=== PATIENT | female | born 1950 | race Caucasian/White ===

== ENCOUNTER → 2023-07-22 10:21 | Outpatient (REF) | payer MEDICARE, OTHER, SELFPAY ==
[2023-07-22 13:36] LABS: TSH Reflex To Free T4 0.09 uIU/ml (0.47-4.68)
[2023-07-22 14:04] LABS: Free T4 1.38 ng/dl (0.78-2.19)
[2023-07-22 14:10] LABS: Glycohemoglobin (HgbA1c) 6.4 % (4.0-5.6)
== END ==
LOC: HWLAB 10:21
PROVIDERS: ATTENDING PHYSICIAN Internal Medicine
DX: E03.9 Hypothyroidism, unspecified (principal); R73.03 Prediabetes; I10 Essential (primary) hypertension; E78.49 Other hyperlipidemia
CPT/HCPCS: 36415; 83036; 84439; 84443

== ENCOUNTER → 2023-09-17 09:04 | Outpatient (REF) | payer MEDICARE, OTHER, SELFPAY ==
[2023-09-17 11:42] LABS: HDL Cholesterol 61 mg/dl; LDL Cholesterol, Calculated 98 mg/dl; Total Cholesterol 213 mg/dl (50-199); Triglyceride 274 mg/dl (10-149); Very Low Density Lipoprotein 54 mg/dl (0-30)
[2023-09-17 12:11] LABS: TSH Reflex To Free T4 2.42 uIU/ml (0.47-4.68)
== END ==
LOC: HWLAB 09:04
PROVIDERS: ATTENDING PHYSICIAN Internal Medicine
DX: E03.9 Hypothyroidism, unspecified (principal); M81.0 Age-related osteoporosis without current pathological fracture; I10 Essential (primary) hypertension; Z12.11 Encounter for screening for malignant neoplasm of colon; E11.9 Type 2 diabetes mellitus without complications; K76.0 Fatty (change of) liver, not elsewhere classified; E78.2 Mixed hyperlipidemia
CPT/HCPCS: 36415; 80061; 84443

== ENCOUNTER → 2023-12-30 08:23 | Outpatient (REF) | payer MEDICARE, OTHER, SELFPAY ==
[2023-12-30 13:05] LABS: ALT (SGPT) 46 U/L (0-35); AST (SGOT) 48 U/L (14-36); Albumin 4.7 g/dl (3.5-5.0); Alkaline Phosphatase 87 U/L (38-126); Blood Urea Nitrogen 22 mg/dl (7-17); Calcium 9.7 mg/dl (8.4-10.2); Carbon Dioxide 25 mmol/L (22-30); Chloride 102 mmol/L (98-107); Glucose 121 mg/dl (70-99); Potassium 4.3 mmol/L (3.5-5.1); Sodium 141 mmol/L (135-145); Total Bilirubin 0.7 mg/dl (0.2-1.3); Total Protein 7.2 g/dl (6.3-8.2); eGFR > 60.00
[2023-12-30 13:33] LABS: Glycohemoglobin (HgbA1c) 6.2 % (4.0-5.6)
[2023-12-30 13:45] LABS: TSH Reflex To Free T4 3.46 uIU/ml (0.47-4.68)
== END ==
LOC: HWLAB 08:23
PROVIDERS: ATTENDING PHYSICIAN Internal Medicine
DX: E03.9 Hypothyroidism, unspecified (principal); R73.03 Prediabetes; I10 Essential (primary) hypertension
CPT/HCPCS: 36415; 80053; 83036; 84443

== ENCOUNTER → 2024-09-14 09:15 | Outpatient (REF) | payer MEDICARE, OTHER, SELFPAY ==
[2024-09-14 11:35] LABS: % Basophils 0.7 % (0-2); % Eosinophils 2.5 % (0-6); % Immature Granulocytes 0.7 % (0-0.5); % Lymphocytes 19.1 % (20.5-51.1); Absolute Basophils 0.1 10^3/uL (0-0.2); Absolute Eosinophils 0.2 10^3/uL (0-0.7); Absolute Immature Granulocytes 0.1 10^3/uL (0-0.05); Absolute Lymphocytes 1.4 10^3/uL (1.2-3.4); Absolute Monocytes 0.6 10^3/uL (0.1-0.6); Hematocrit 43.4 % (37.0-47.0); Hemoglobin 14.5 g/dL (12.0-16.0); Mean Corp Hgb Conc. 33.4 g/dL (33.0-37.0); Mean Corpuscular Hgb 29.8 pg (27.0-31.0); Mean Corpuscular Volume 89.3 fL (81.0-99.0); Mean Platelet Volume 10.2 fL (7.4-10.4); Nucleated Red Blood Cells % 0 %; Platelet Count 252 10^3/uL (130-400); Red Blood Cell Count 4.86 10^6/uL (4.20-5.40); Red Cell Dist. Width 14.3 % (11.5-14.5); White Blood Cell Count 7.2 10^3/uL (4.8-10.8)
[2024-09-14 12:01] LABS: ALT (SGPT) 35 U/L (0-35); AST (SGOT) 30 U/L (14-36); Albumin 4.7 g/dl (3.5-5.0); Alkaline Phosphatase 92 U/L (38-126); Blood Urea Nitrogen 16 mg/dl (7-17); Calcium 9.9 mg/dl (8.4-10.2); Carbon Dioxide 28 mmol/L (22-30); Chloride 106 mmol/L (98-107); Glucose 112 mg/dl (70-99); HDL Cholesterol 66 mg/dl; LDL Cholesterol, Calculated 96 mg/dl; Potassium 3.8 mmol/L (3.5-5.1); Sodium 142 mmol/L (135-145); Total Bilirubin 0.6 mg/dl (0.2-1.3); Total Cholesterol 229 mg/dl (50-199); Total Protein 7.5 g/dl (6.3-8.2); Triglyceride 335 mg/dl (10-149); Very Low Density Lipoprotein 67 mg/dl (0-30); eGFR > 60.00
[2024-09-14 13:00] LABS: Free T4 1.15 ng/dl (0.78-2.19)
[2024-09-14 14:16] LABS: Glycohemoglobin (HgbA1c) 6.3 % (4.0-5.6)
== END ==
LOC: HWLAB 09:15
PROVIDERS: ATTENDING PHYSICIAN Internal Medicine
DX: E03.9 Hypothyroidism, unspecified (principal); M81.0 Age-related osteoporosis without current pathological fracture; I10 Essential (primary) hypertension; Z12.11 Encounter for screening for malignant neoplasm of colon; E11.9 Type 2 diabetes mellitus without complications; K76.0 Fatty (change of) liver, not elsewhere classified; E78.2 Mixed hyperlipidemia; Z00.00 Encounter for general adult medical examination without abnormal findings; G62.9 Polyneuropathy, unspecified; Z13.31 Encounter for screening for depression
CPT/HCPCS: 36415; 80053; 80061; 83036; 84439; 84443; 85025

== ENCOUNTER → 2024-11-30 08:54 | Outpatient (REF) | payer MEDICARE, OTHER, SELFPAY | LOC: HWLAB 08:54 | PROVIDERS: ATTENDING PHYSICIAN Internal Medicine | DX: E03.9 Hypothyroidism, unspecified (principal) | CPT/HCPCS: 36415; 84443 ==

== ENCOUNTER 2025-03-28 20:54 | Observation (INO) | payer MEDICARE, OTHER, SELFPAY ==
[2025-03-28 15:13] VITALS: BMI 24.1
[2025-03-28 15:16] VITALS: BP 168/76
[2025-03-28 15:18] VITALS: BP 168/76
[2025-03-28 15:21] LABS: Glucose - Point of Care 126 mg/dl (70-99)
--- NOTE | 2025-03-28 16:15 | ED.GENMED ---
History of Present Illness
<Stevie Chester PA-C - Last Filed: 03/28/25 23:13>
General
Chief Complaint: Malaise
Time Seen by Provider: 03/28/25 15:46
History of Present Illness
History of Present Illness:
74-year-old female with history of hypertension and hyperlipidemia presents to the emergency department for evaluation of confusion and fatigue that has been progressing over the past 2 days. According to patient's daughter she slept most of the
day today but has been having vomiting and diarrhea over the weekend. Daughter states 'whenever she gets sick she gets like this'. She is somnolent and having a hard time speaking. Patient denies any pain at this time. No recent antibiotics, no
ill contacts
Past History
<Stevie Chester PA-C - Last Filed: 03/28/25 23:13>
Past History
ED Past Medical History: HTN, Hypercholesterolemia and Hypothyroidism
ED Past Surgical History: Orthopedic (Lumbar laminectomy) and Other (Cataract)
Social History
Tobacco: Former smoker
Alcohol: None
Personal:
Living: with family
Employment: Employed
Family History
Family History: Negative Diabetes, Hypertension or CAD
Review of Systems
<Stevie Chester PA-C - Last Filed: 03/28/25 23:13>
Review of Systems
Allergies reviewed?: Yes
All Other Systems: ROS reviewed and negative except as documented in HPI and ROS
Phy Exam
<Stevie Chester PA-C - Last Filed: 03/28/25 23:13>
Physical Exam
Physical Exam:
GEN: Somnolent but arouses to voice, confused
HEENT: Oral mucosa moist, no scleral icterus
Cardiac: Regular rate and rhythm
Lung: No respiratory distress, no tachypnea
MSK: No gross deformity or injuries
Skin: Good color, no pallor or jaundice, no rashes
Neuro: Confused and has difficulty with simple questions, asked repetitive motions, moves all extremities freely, no focal deficits
Psych: Calm, cooperative
Sepsis
<Stevie Chester PA-C - Last Filed: 03/28/25 23:13>
Sepsis Screening
Sepsis Assessment: Sepsis Ruled Out
Sepsis Screen
Sepsis Screen: Sepsis Ruled Out
Date: 03/28/25
Time: 23:13
Course
<Stevie Chester PA-C - Last Filed: 03/28/25 23:13>
Orders/Labs/Results
Orders:
Orders
03/28/25 Dinner
BRAT
At Your Request: Full Participation
03/28/25 15:25
Electrocardiogram (*1) Urgent
Reason for Study: Fatigue / Weakness
03/28/25 15:26
EKG- Treatment ONCE
03/28/25 16:15
0.9% Sodium Chloride 1000 ml [Nss] 1,000 ml IV BOLUS
03/28/25 16:28
Basic Metabolic Panel Urgent
Complete Blood Count/With Diff Urgent
Lactic Acid Q4H
Comment: CANCEL 2nd LACTIC ACID IF 1st LACTIC ACID IS LESS THAN 2
Urinalysis Reflex To Culture Urgent
Date Specimen was Collected: 03/28/25
Time Specimen was Collected: 15:26
Urine Microscopic Reflex Cult Urgent
Urine Culture Urgent
MARY JO Source: U
Specimen Description:
Date Specimen was Collected: 03/28/25
Time Specimen was Collected: 15:26
03/28/25 17:39
0.9% Sodium Chloride 1000 ml [Nss] 1,000 ml IV BOLUS
03/28/25 17:40
CT Head W/o Iv Contrast Urgent
Comment:
Reason For Exam: confusion
03/28/25 19:18
Ondansetron Injectable [Zofran] 4 mg IV NOW STA
03/28/25 19:38
COVID-19 Antigen Urgent
Source: Nasal Swab
Influenza A+B Rapid Molecular Urgent
MARY JO Source: Nasal Swab
Specimen Description:
03/28/25 19:44
CR Chest Portable - 1 View Urgent
Comment:
Reason For Exam: confusion, malaise, borderline hypoxia
Reason Study Needs to be Portable: Unable to Transport
03/28/25 20:09
Admit/Transfer Patient As Directed
Co-Sign Provider:
Level of Care: Observation services
Assign to:: Medical/Surgical
Physician / Group: carmelo
Diagnosis: gastroenteritis
PRN Pain Medication Management As Directed
May give lesser potent ordered pain med per pt: Yes
preference::
Protocol:: Medication orders for pain may be administered in a
manner that supports deferring to patient preference
when the pt is:
- Requesting an ordered lesser potent pain medication.
Least to most potent pain medications are defined
as: acetaminophen < NSAID < tramadol < opioids
(morphine, oxycodone, hydromorphone).
- Requesting a lesser dose of the same medication IF
ORDERED.
- Requesting a less intrusive route of administration
if both routes are prescribed by the provider (PO <
IV).
03/28/25 20:10
Code Status As Directed
Resuscitation Status: Full Code
03/28/25 20:22
Lactic Acid Urgent
03/28/25 21:30
0.9% Sodium Chloride 1000 ml [Nss] 1,000 ml IV 80 mls/hr
Acetaminophen [Tylenol] 650 mg PO Q4HPRN PRN
Dextrose 50%-Water [Dextrose 50% Syringe] 12.5 grams IV [id number] PRN
Glucagon [GlucaGen] 1 mg IM PRN PRN
Ondansetron Injectable [Zofran] 4 mg IV Q6HPRN PRN
03/28/25 21:30
Activity As Directed
Activity Level: As Tolerated
Bedside Glucose Monitoring As Directed
Frequency: AC&HS
Additional Instructions:: Change to q6h if pt on TPN, tube feeding or not eating
Vital Signs As Directed
Frequency: Per unit guidelines
DX Deep Vein Thrombosis Video Routine
03/29/25 06:00
Complete Blood Count/With Diff IN AM
Comprehensive Metabolic Panel IN AM
Glycohemoglobin (HgbA1c) IN AM
03/29/25 07:30
Insulin Aspart Corrective Low [Novolog Flexpen-Low Resistance] See Protocol SC AC
03/29/25 08:00
Heparin 5,000 units SC Q12
Abnormal Lab Results
03/28/25 03/28/25
15:20 16:28
Abs Immat Gran (auto) 0.1 H 10^3/uL
(0-0.05)
Absolute Neuts (auto) 8.7 H 10^3/uL
(1.4-6.5)
Absolute Lymphs (auto) 0.7 L 10^3/uL
(1.2-3.4)
Absolute Monos (auto) 0.8 H 10^3/uL
(0.1-0.6)
Immature Gran % 0.7 H %
(0-0.5)
Neutrophils % 84.4 H %
(42.2-75.2)
Lymphocytes % 6.6 L %
(20.5-51.1)
BUN 29 H mg/dl
(7-17)
Glucose 134 H mg/dl
(70-99)
Urine Bacteria (Reflex) Moderate A
(Negative)
Urine Albumin (Reflex) 2+ A
(Neg - Trace)
POC Glucose 126 H mg/dl
(70-99)
03/28/25 16:28
03/28/25 16:28
Vital Signs
Initial and Last Documented VS:
Initial Vital Signs
BP
168/76
03/28/25 15:16
Last Documented Vital Signs
Temp Pulse Resp BP Pulse Ox
97.7 F 75 18 157/80 96
03/28/25 22:09 03/28/25 22:09 03/28/25 22:09 03/28/25 22:09 03/28/25 22:09
<Sinan Marroquin MD - Last Filed: 03/28/25 19:21>
Orders/Labs/Results
Orders:
Orders
03/28/25 Dinner
BRAT
At Your Request: Full Participation
03/28/25 15:25
Electrocardiogram (*1) Urgent
Reason for Study: Fatigue / Weakness
03/28/25 15:26
EKG- Treatment ONCE
03/28/25 16:15
0.9% Sodium Chloride 1000 ml [Nss] 1,000 ml IV BOLUS
03/28/25 16:28
Basic Metabolic Panel Urgent
Complete Blood Count/With Diff Urgent
Lactic Acid Q4H
Comment: CANCEL 2nd LACTIC ACID IF 1st LACTIC ACID IS LESS THAN 2
Urinalysis Reflex To Culture Urgent
Date Specimen was Collected: 03/28/25
Time Specimen was Collected: 15:26
Urine Microscopic Reflex Cult Urgent
Urine Culture Urgent
MARY JO Source: U
Specimen Description:
Date Specimen was Collected: 03/28/25
Time Specimen was Collected: 15:26
03/28/25 17:39
0.9% Sodium Chloride 1000 ml [Nss] 1,000 ml IV BOLUS
03/28/25 17:40
CT Head W/o Iv Contrast Urgent
Comment:
Reason For Exam: confusion
03/28/25 19:18
Ondansetron Injectable [Zofran] 4 mg IV NOW STA
03/28/25 19:38
COVID-19 Antigen Urgent
Source: Nasal Swab
Influenza A+B Rapid Molecular Urgent
MARY JO Source: Nasal Swab
Specimen Description:
03/28/25 19:44
CR Chest Portable - 1 View Urgent
Comment:
Reason For Exam: confusion, malaise, borderline hypoxia
Reason Study Needs to be Portable: Unable to Transport
03/28/25 20:09
Admit/Transfer Patient As Directed
Co-Sign Provider:
Level of Care: Observation services
Assign to:: Medical/Surgical
Physician / Group: carmelo
Diagnosis: gastroenteritis
PRN Pain Medication Management As Directed
May give lesser potent ordered pain med per pt: Yes
preference::
Protocol:: Medication orders for pain may be administered in a
manner that supports deferring to patient preference
when the pt is:
- Requesting an ordered lesser potent pain medication.
Least to most potent pain medications are defined
as: acetaminophen < NSAID < tramadol < opioids
(morphine, oxycodone, hydromorphone).
- Requesting a lesser dose of the same medication IF
ORDERED.
- Requesting a less intrusive route of administration
if both routes are prescribed by the provider (PO <
IV).
03/28/25 20:10
Code Status As Directed
Resuscitation Status: Full Code
03/28/25 20:22
Lactic Acid Urgent
03/28/25 21:30
0.9% Sodium Chloride 1000 ml [Nss] 1,000 ml IV 80 mls/hr
Acetaminophen [Tylenol] 650 mg PO Q4HPRN PRN
Dextrose 50%-Water [Dextrose 50% Syringe] 12.5 grams IV [id number] PRN
Glucagon [GlucaGen] 1 mg IM PRN PRN
Ondansetron Injectable [Zofran] 4 mg IV Q6HPRN PRN
03/28/25 21:30
Activity As Directed
Activity Level: As Tolerated
Bedside Glucose Monitoring As Directed
Frequency: AC&HS
Additional Instructions:: Change to q6h if pt on TPN, tube feeding or not eating
Vital Signs As Directed
Frequency: Per unit guidelines
DX Deep Vein Thrombosis Video Routine
03/29/25 06:00
Complete Blood Count/With Diff IN AM
Comprehensive Metabolic Panel IN AM
Glycohemoglobin (HgbA1c) IN AM
03/29/25 07:30
Insulin Aspart Corrective Low [Novolog Flexpen-Low Resistance] See Protocol SC AC
03/29/25 08:00
Heparin 5,000 units SC Q12
Abnormal Lab Results
03/28/25 03/28/25
15:20 16:28
Abs Immat Gran (auto) 0.1 H 10^3/uL
(0-0.05)
Absolute Neuts (auto) 8.7 H 10^3/uL
(1.4-6.5)
Absolute Lymphs (auto) 0.7 L 10^3/uL
(1.2-3.4)
Absolute Monos (auto) 0.8 H 10^3/uL
(0.1-0.6)
Immature Gran % 0.7 H %
(0-0.5)
Neutrophils % 84.4 H %
(42.2-75.2)
Lymphocytes % 6.6 L %
(20.5-51.1)
BUN 29 H mg/dl
(7-17)
Glucose 134 H mg/dl
(70-99)
Urine Bacteria (Reflex) Moderate A
(Negative)
Urine Albumin (Reflex) 2+ A
(Neg - Trace)
POC Glucose 126 H mg/dl
(70-99)
03/28/25 16:28
03/28/25 16:28
Vital Signs
Initial and Last Documented VS:
Initial Vital Signs
BP
168/76
03/28/25 15:16
Last Documented Vital Signs
Temp Pulse Resp BP Pulse Ox
97.7 F 75 18 157/80 96
03/28/25 22:09 03/28/25 22:09 03/28/25 22:09 03/28/25 22:09 03/28/25 22:09
<Stevie Chester PA-C - Last Filed: 03/28/25 23:13>
MDM/Problems Addressed
MDM/Problems Addressed:
74-year-old female with acute metabolic encephalopathy likely secondary to vomiting and diarrhea. She has no focal deficits and CT of the head is reassuring. Doubt CVA. Will admit due to severe weakness and confusion
<Stevie Chester PA-C - Last Filed: 03/28/25 23:13>
*Pulse Oximetry
SaO2: 92
Oxygen Mode of Delivery: Room air
Patient hypoxic: no
*Critical Care Note
Total Time (30-74mins, 75-104mins- exclusive of procedures): Not Applicable
ED Attending Note
<Stevie Chester PA-C - Last Filed: 03/28/25 23:13>
-
Portions of this chart may have been created with voice recognition software.� Occasional wrong word or��sound alike� substitutions may have occurred due to the inherent limitations of voice recognition software.
<Sinan Marroquin MD - Last Filed: 03/28/25 19:21>
ED Attending Note
Patient seen and examined by attending physician: Yes
ED Attending Note:
I have seen and evaluated the patient with a [id number] encounter. I have spoken to the advance practicer provider and involved in the medical history, the physical exam, medical decision making.
Evaluation and management service: agree unless noted differently below.
Results interpretation: agree unless noted differently below.
Focused HPI: 74-year-old female with a past medical history of hypertension, hyperlipidemia who presents to the ER for evaluation of weakness and confusion. Patient is somewhat confused she says it has been going on for the past 3 days since
Friday. She says that she has been feeling very weak, nausea and vomiting. According to daughter as been more lethargic and confused and this typically happens when she is sick. Patient denies having headache, congestion, sore throat. She says
she has a chronic cough but does not feel short of breath or having chest pain. Denies having abdominal pain despite her nausea/vomiting. Has not had diarrhea. Subjective fever but no fever here.
Physical exam: Awake and alert. She is able to tell me her name, knows she is in the hospital and was able to give me the year but was a bit confused about the month of the day of the week. Cranial nerves are grossly intact and she is moving all
extremities�no focal neurologic deficits. Lungs sound clear bilaterally. Abdomen nontender.
Medical Decision Makin-year-old female presents with confusion and lethargy, nausea and vomiting. Subjective fever. Vitals and exam are as above. CBC here showed predominant neutrophils but no leukocytosis. Chemistry no clinically
significant abnormalities. Urinalysis moderate bacteria but no pyuria to suggest infection especially the absence of urinary symptoms. CT head reviewed by me no acute abnormalities although we are awaiting final report. Overall suspect likely
gastroenteritis and dehydration�Will provide fluids, admit for continued care.
Discharge Plan
Departure
Patient Disposition: Admit
Date of Disposition: 03/28/25
Time of Disposition: 19:42
Admit to: Med/Surg
Presentation/result/management discussed w/ accepting MD/DO: Hospitalist
Discharge Problem:
Acute metabolic encephalopathy
Interventions
Interventions:
*General Assessment Last Done: 03/28/25 15:18
*Neglect/Abuse Screening Last Done: 03/28/25 15:18
*ED COVID-19 Vaccine History Last Done: 03/28/25 16:58
*ED Influenza Vaccine History Last Done: 03/28/25 16:58
[facility] Fall Risk Assessment Tool Last Done: 03/28/25 16:57
*Risk Screen - Suicide (C-SSRS) Last Done: 03/28/25 16:59
*Nursing Disposition Last Done: 03/28/25 21:22
Discharge Date and Time
Discharge Date/Time: 03/28/25 21:23
[2025-03-28 16:39] LABS: Urine Character Clear (Clear)
[2025-03-28 16:41] LABS: Hematocrit 43.8 % (37.0-47.0); Hemoglobin 15.1 g/dL (12.0-16.0); Mean Corp Hgb Conc. 34.5 g/dL (33.0-37.0); Mean Corpuscular Volume 88.7 fL (81.0-99.0); Nucleated Red Blood Cells % 0 %; Platelet Count 251 10^3/uL (130-400); Red Cell Dist. Width 14.3 % (11.5-14.5)
[2025-03-28 16:46] LABS: Urine Squamous Cell 0-2 /LPF (Few)
[2025-03-28 16:47] LABS: Urine Red Blood Cell 0-2 /HPF (0-2); Urine White Cell 0-2 /HPF (0-5)
[2025-03-28] MEDS: NSS 1000 IV ×3 (16:55→23:01)
[2025-03-28 17:05] LABS: Blood Urea Nitrogen 29 mg/dl (7-17); Calcium 8.4 mg/dl (8.4-10.2); Carbon Dioxide 30 mmol/L (22-30); Chloride 103 mmol/L (98-107); Estimated Creatinine Clearance 59 ml/min; Glucose 134 mg/dl (70-99); Sodium 141 mmol/L (135-145); eGFR > 60.00
[2025-03-28 19:06] VITALS: BP 140/76
[2025-03-28] MEDS: ZOFRAN 4 MG IV (19:20)
[2025-03-28 20:08] LABS: COVID-19 Antigen Negative (Negative)
--- NOTE | 2025-03-28 20:13 | HPS.HSE ---
Addendum entered and electronically signed by Rocael Qiu MD 03/28/25 20:24:
Patient saturating 88% requiring 4L oxygen. COVID and FLu negative. CXR does not appear to show any abnormality, report pending.
Original Note:
Family Physician
-
Family Physician: Dinah Swanson DO
Chief Complaint
-
vomiting
History of Present Illness
74-year-old female past medical history of hypertension, diabetes, hypothyroidism, GERD, presenting with vomiting for the past 2 days. She says she feels fatigued. She denies any abdominal pain or diarrhea.
She has a chronic cough which she states is not new. Denies any shortness of breath or sore throat or bodyaches. She has not eaten anything for the past day. Denies any sick contacts. Denies any urinary symptoms.
Medical History
Past Medical History
Past Medical History: Reports Other (hypertension, diabetes, hypothyroidism, GERD)
Past Surgical History: Reports Other ( Orthopedic (Lumbar laminectomy) and Other (Cataract))
Social History
Tobacco: Non-smoker
Alcohol: None
Drug: None
Family History
Family History: Not pertinent
Allergies / Home Medications
Allergies reflects when Allergies were last updated in [employer].
Home Medications with original date entered in [employer]
Allergy/Medication List:
Allergies
Allergy/AdvReac Type Severity Reaction Status Date / Time
Sulfa (Sulfonamide Allergy Rash Verified 02/27/19 16:59
Antibiotics)
Home Medications
amlodipine 5 mg tablet 5 mg PO DAILY Blood pressure 07/29/16
atorvastatin 40 mg tablet 40 mg PO QPM High cholesterol 07/29/16
cholecalciferol (vitamin D3) 10 mcg (400 unit) tablet (Vitamin D3) 2,000 units PO DAILY Supplement 07/29/16
losartan 100 mg-hydrochlorothiazide 25 mg tablet 1 ea PO DAILY Blood pressure 07/29/16
aspirin 81 mg tablet,delayed release 81 mg PO HS Blood clot prevention/tx 09/07/16
atenolol 100 mg tablet (Tenormin) 100 mg PO HS Blood pressure 06/13/17
multivitamin with folic acid 400 mcg tablet (Tab-A-Emir) 1 tab PO DAILY Supplement 06/13/17
ibandronate 150 mg tablet (Boniva) 150 mg PO MONTHLY OSTEOPOROSIS 03/22/20
metformin 500 mg tablet 500 mg PO DAILY@0800 Diabetes 03/22/20
Caltrate 600 plus D 1 tab PO DAILY 11/22/22
Fish Oil 1,200 mg PO DAILY Supplement 11/22/22
Vitamin C 1,000 mg PO DAILY Supplement 11/22/22
magnesium glycinate 400 mg PO DAILY Supplement 11/22/22
doxycycline monohydrate 100 mg capsule 100 mg PO BID #14 caps 11/25/22
levothyroxine 100 mcg tablet 100 mcg PO DAILY AT 0700 #30 tabs 11/25/22
pantoprazole 40 mg tablet,delayed release 40 mg PO DAILY #30 tabs 11/25/22
Review of Systems
-
History Source: Patient
A 12 point ROS was completed and negative except as noted: Yes
Constitutional: Reports No Symptoms
EENT: Reports No Symptoms
Respiratory: Reports No Symptoms
Cardiac: Reports No Symptoms
Abdomen/GI: Reports See HPI
: Reports No Symptoms
Musculoskeletal: Reports No Symptoms
Skin: Reports No Symptoms
Neurological: Reports No Symptoms
Endocrine: Reports No Symptoms
Hematologic/Lymphatic: Reports No Symptoms
Psych: Reports No Symptoms
Physical Exam
Vital Signs
Vital Signs
Temp Pulse Resp BP Pulse Ox
98.9 F 82 18 140/76 89
03/28/25 15:18 03/28/25 19:45 03/28/25 19:45 03/28/25 19:06 03/28/25 19:45
Physical Exam
General: Well Developed, Well Nourished and No Apparent Distress
HEENT: NormoCephalic, Moist mucous membranes and Atraumatic
Respiratory: Clear
Cardiac: S1/S2 and Regular Rhythm; No Murmur or Rub
GI: Soft, Non Tender, Non Distended and Normal Bowel Sounds; No Organomegaly
Rectal: Deferred by Provider
Musculoskeletal: No Clubbing, No Cyanosis and No Edema
Skin: No Rash
Neuro: Nonfocal/grossly intact
Laboratory Results
-
03/28/25 16:28
03/28/25 16:28
Laboratory Results
Lactic Acid 2.0 mmol/L (0.7-2.0) 03/28/25 16:28
Total Bilirubin Cancelled 03/28/25 16:28
AST Cancelled 03/28/25 16:28
ALT Cancelled 03/28/25 16:28
Alkaline Phosphatase Cancelled 03/28/25 16:28
Data Reviewed
-
Lab Data: Labs Reviewed by me
Old Records: Reviewed
Impression/Plan
-
IMPRESSION:
PLAN:
# Likely acute viral gastroenteritis
-Urinalysis negative
- IV fluids
- No diarrhea
- BRAT diet
- COVID and flu pending
- Chest x-ray pending
Essential hypertension
- Continue amlodipine, atenolol
- Hold losartan/surgical thiazide
Type 2 diabetes
- Hold metformin
- Insulin sliding scale
Hypothyroidism
- Continue levothyroxine
GERD
- Continue Protonix
Chronic cough
Full code
DVT prophylaxis�heparin
BRAT diet
[2025-03-28 20:18] VITALS: BP 123/61
[2025-03-28 20:20] VITALS: BP 123/61
[2025-03-28 21:41] VITALS: BMI 24.0
[2025-03-28 22:09] VITALS: BP 157/80
--- NOTE | 2025-03-28 23:00 | PTCARENOTE ---
Admitted to 4E. AAOx3, forgetful, anxious and Gen weakness. Shallow breathing with a dry nonproductive cough. Dyspneic w/ exertion. SaO2 96% 2L. OOBx1 w/ RW. Bed alarm in place. C/o burning sensation when urinating. Abd round. Will cont w/ tx plan.
[2025-03-28] MEDS: TYLENOL 650 MG PO (23:07)
[2025-03-28 23:13] LABS: Glucose - Point of Care 113 mg/dl (70-99)
[2025-03-29] MEDS: SYNTHROID 100 MCG PO (05:18)
[2025-03-29 07:10] LABS: Glucose - Point of Care 96 mg/dl (70-99)
[2025-03-29 07:20] VITALS: BP 134/55
[2025-03-29 08:21] LABS: Hematocrit 37.0 % (37.0-47.0); Hemoglobin 12.4 g/dL (12.0-16.0); Mean Corp Hgb Conc. 33.5 g/dL (33.0-37.0); Mean Corpuscular Volume 89.2 fL (81.0-99.0); Nucleated Red Blood Cells % 0 %; Platelet Count 176 10^3/uL (130-400); Red Cell Dist. Width 14.5 % (11.5-14.5)
[2025-03-29 08:35] LABS: ALT (SGPT) 31 U/L (0-35); AST (SGOT) 43 U/L (14-36); Albumin 3.3 g/dl (3.5-5.0); Alkaline Phosphatase 70 U/L (38-126); Blood Urea Nitrogen 21 mg/dl (7-17); Calcium 7.2 mg/dl (8.4-10.2); Carbon Dioxide 25 mmol/L (22-30); Chloride 112 mmol/L (98-107); Estimated Creatinine Clearance 76 ml/min; Glucose 102 mg/dl (70-99); Potassium 3.5 mmol/L (3.5-5.1); Sodium 141 mmol/L (135-145); Total Protein 5.8 g/dl (6.3-8.2); eGFR > 60.00
[2025-03-29] MEDS: ZOFRAN 4 MG IV (09:18)
[2025-03-29] MEDS: HEPARIN 5000 UNITS SC ×2 (09:18→20:13)
[2025-03-29 09:56] LABS: Glycohemoglobin (HgbA1c) 6.4 % (4.0-5.9)
[2025-03-29 12:01] LABS: Glucose - Point of Care 110 mg/dl (70-99)
[2025-03-29 15:30] VITALS: BP 143/88
[2025-03-29] MEDS: MAALOX 30 ML PO (15:39)
[2025-03-29] MEDS: NSS 1000 IV (15:40)
--- NOTE | 2025-03-29 16:38 | CM ---
Alert awake oriented patient who lives with her daughter Rosa in a 2 story home with 2 steps to enter and first floor bed/bathroom. She is independent in activates of daily living.She does drive .She uses a cane.Offered VN she declined need.
[facility] VN in past . No SNF hx
Ph[facility]acy [facility]
PCP Dr Swanson
PLAN Home with no needs
[2025-03-29 16:43] LABS: Glucose - Point of Care 111 mg/dl (70-99)
[2025-03-29] MEDS: NORVASC 5 MG PO (17:33)
[2025-03-29] MEDS: GLUCOPHAGE 500 MG PO (18:21)
[2025-03-29] MEDS: PEPCID 20 MG PO (20:13)
[2025-03-29 21:23] LABS: Glucose - Point of Care 101 mg/dl (70-99)
[2025-03-29] MEDS: MAGNESIUM OXIDE 400 MG PO (22:11)
[2025-03-29] MEDS: LIPITOR 40 MG PO (22:11)
[2025-03-29] MEDS: TENORMIN 100 MG PO (22:12)
[2025-03-29 23:00] VITALS: BP 134/66
[2025-03-29] MEDS: TYLENOL 650 MG PO (23:28)
[2025-03-30] MEDS: NSS 1000 IV (01:17)
[2025-03-30] MEDS: SYNTHROID 100 MCG PO (05:45)
[2025-03-30 07:00] VITALS: BP 122/54
[2025-03-30 07:28] LABS: Glucose - Point of Care 116 mg/dl (70-99)
[2025-03-30] MEDS: PEPCID 20 MG PO (07:42)
[2025-03-30] MEDS: OSCAL 500 + D 500 MG PO (07:42)
[2025-03-30] MEDS: VITAMIN D3 (cholecalciferol) 50 MCG PO (07:42)
[2025-03-30] MEDS: HEPARIN 5000 UNITS SC (07:42)
[2025-03-30] MEDS: THERAGRAN 1 TABLET PO (07:42)
[2025-03-30] MEDS: NORVASC 5 MG PO (07:43)
--- NOTE | 2025-03-30 08:42 | W.PN.HOSP.TC ---
Today's Communication/Plan
-
planned to discharge 03/29 but pt was nauseous
Assessment / Plan
Assessment / Plan
N/V
IVF
BRAT diet, advance diet as tolerated
No evidence of infection, flu/COVID-negative, UA negative, UCX NGTD
HTN
BP controlled, continue amlodipine, and atenolol
Holding her losartan/HCTZ combo pill for now
Anticipated Discharge: Today
Subjective/Interval History
-
Date of Service: March 29, 2025
Late entry note for 03/29/2025
Patient is seen and examined early in a.m., was feeling much improved, denied any nausea, wanted to eat. Updated on plan of care that if able to tolerate BRAT diet for breakfast would advance to regular diet for lunch. And plan to discharge in
afternoon.
Patient reported that she did not have a ride for this afternoon and would prefer to discharge in the morning, I discussed that medically speaking she would need to be discharged if she were clinically improved.
In the afternoon RN reported to me that patient did eat but was complaining of heartburn as well as continued nausea and needing IV Zofran and still feeling too nauseous to discharge.
Objective Data
-
Labs:
Laboratory Results
03/30/25
07:33
Sodium Pending
Potassium Pending
Chloride Pending
Carbon Dioxide Pending
BUN Pending
Creatinine Pending
Glucose Pending
Calcium Pending
Total Bilirubin Pending
AST Pending
ALT Pending
Alkaline Phosphatase Pending
Vital Signs:
Vital Signs
Temp Pulse Resp BP Pulse Ox
97.5 F 65 16 122/54 94
03/30/25 07:00 03/30/25 07:43 03/30/25 07:00 03/30/25 07:43 03/30/25 07:00
I&O
03/29/25 03/30/25 03/31/25
06:59 06:59 06:59
Intake Total 820 / 820 2519 / 2519
Output Total 450 / 450
Balance 820 / 820 2069
Review of Systems
-
History Source: Patient
All other systems: Reviewed and negative
Physical Exam
-
General: No Apparent Distress
HEENT: Moist Mucous Membranes, Anicteric and PERRLA
Respiratory: Clear to Auscultation; Negative Wheezes, Rales or Rhonchi
Cardiac: Regular Rhythm and S1/S2; Negative Murmur, Rub or Gallop
GI: Soft, Nontender, Nondistended and Normal Bowel Sounds
Musculoskeletal: No Edema
Skin: Warm and Dry; Negative Rash, Ulcers or Lesions
Neuro: Awake and AO x 3
Hematologic / Lymphatic: No Lymphadenopathy
Psych: Calm
Data Reviewed
-
Labs: Labs Reviewed by me and Discussed with Patient
[2025-03-30 09:24] LABS: ALT (SGPT) 31 U/L (0-35); AST (SGOT) 38 U/L (14-36); Albumin 3.2 g/dl (3.5-5.0); Alkaline Phosphatase 82 U/L (38-126); Blood Urea Nitrogen 13 mg/dl (7-17); Calcium 7.5 mg/dl (8.4-10.2); Carbon Dioxide 24 mmol/L (22-30); Chloride 109 mmol/L (98-107); Estimated Creatinine Clearance 65 ml/min; Glucose 109 mg/dl (70-99); Potassium 3.4 mmol/L (3.5-5.1); Sodium 138 mmol/L (135-145); Total Protein 5.6 g/dl (6.3-8.2); eGFR > 60.00
[2025-03-30 11:39] LABS: Glucose - Point of Care 132 mg/dl (70-99)
[2025-03-30 11:45] VITALS: BP 140/67
--- NOTE | 2025-03-30 12:15 | CM ---
Pt is discharged home with no needs. Dtr will drive pt home today
--- NOTE | 2025-03-30 19:05 | W.DCSUMMARY ---
Discharge Summary
Discharge Data
Date of Admission: 03/28/25
Date of Discharge: 03/30/25
Total time spent discharging patient (in min): 35
-
Pending Results: No
Hospital Course
Attending physician on day of discharge:
Mikala Patrick MD
Discharge diagnosis:
nausea and vomiting possible acute viral gastroenteritis
Secondary diagnoses:
HTN
Consultations:
None
Procedures:
None
Hospital course:
74F with HTN, diabetes, hypothyroidism, GERD p/w vomiting, inability to tolerate po. No evidence of infection, flu/COVID-negative, UA negative, UCX NGTD.
She as treated with supportive care, IVF, antiemetics and placed on BRAT diet which she tolerated. Diet was advanced. She reported burning on urination and had negative UA so she was given pyridium and advised to follow up with PCP.
Physical exam on discharge:
General: No Apparent Distress
HEENT: Moist Mucous Membranes, Anicteric and PERRLA
Respiratory: Clear to Auscultation; Negative Wheezes, Rales or Rhonchi
Cardiac: Regular Rhythm and S1/S2; Negative Murmur, Rub or Gallop
GI: Soft, Nontender, Nondistended and Normal Bowel Sounds
Musculoskeletal: No Edema
Skin: Warm and Dry; Negative Rash, Ulcers or Lesions
Neuro: Awake and AO x 3
Hematologic / Lymphatic: No Lymphadenopathy
Psych: Calm
Discharge disposition:
Home
Discharge Plan
-
Patient Disposition: Home (Routine Discharge)
Discharge Diagnosis/Procedures: Viral gastritis
Diet: Regular
Activity: As tolerated
Instructions: Viral gastroenteritis in adults
Referrals:
Dinah Swanson DO [Family Provider, Family Practice]
Prescriptions:
New
phenazopyridine 200 mg tablet
200 mg PO TIDPRN PRN (Reason: dysuria) Qty: 6 0RF
ondansetron 4 mg tablet,disintegrating
4 mg PO Q8H PRN (Reason: nausea and vomiting) Qty: 10 0RF
Continued
atorvastatin 40 MG tablet
40 mg PO HS
amlodipine 5 MG tablet
5 mg PO DAILY
losartan-hydrochlorothiazide 1 EACH tablet
100 ea PO DAILY
Rx Instructions:
100/25mg
cholecalciferol (vitamin D3) [Vitamin D3] 400 UNITS tablet
2,000 units PO DAILY
aspirin 81 MG tablet,delayed release (DR/EC)
81 mg PO DAILY
atenolol [Tenormin] 100 MG tablet
100 mg PO HS
multivitamin with folic acid [Tab-A-Emir] 1 TABLET tablet
1 tab PO DAILY
metformin 500 MG tablet
500 mg PO DAILY@0800
ibandronate [Boniva] 150 MG tablet
150 mg PO MONTHLY
Caltrate 600 plus D
1 tab PO DAILY
magnesium glycinate
400 mg PO HS
levothyroxine 100 mcg Tablet
100 mcg PO DAILY AT 0700 Qty: 30 0RF
Rx Instructions:
new dose
Discontinued
doxycycline monohydrate 100 mg capsule
100 mg PO BID Qty: 14 0RF
Discharge Orders:
Discharge Patient (As Directed); Ordered 03/30/25
Ordered By: Mikala Patrick
Discharge Date and Time
Discharge Date/Time: 03/30/25 12:30
Print Language: KOREAN
== END 2025-03-30 12:30 | disposition home or self-care (01) ==
LOC: 4 EAST ACU 20:54
PROVIDERS: Physician Assistant; ADMITTING PHYSICIAN Hospitalist; ATTENDING PHYSICIAN Internal Medicine; EMERGENCY PHYSICIAN Emergency Medicine; FAMILY PHYSICIAN Internal Medicine
DX: R11.2 Nausea with vomiting, unspecified (principal); E11.9 Type 2 diabetes mellitus without complications; E03.9 Hypothyroidism, unspecified; I10 Essential (primary) hypertension; K21.9 Gastro-esophageal reflux disease without esophagitis; R05.3 Chronic cough; G93.41 Metabolic encephalopathy; E78.00 Pure hypercholesterolemia, unspecified; Z11.52 Encounter for screening for COVID-19; Z79.82 Long term (current) use of aspirin; Z79.84 Long term (current) use of oral hypoglycemic drugs; Z79.899 Other long term (current) drug therapy; Z87.891 Personal history of nicotine dependence
CPT/HCPCS: 70450; 71045; 80048; 80053; 81003; 81015; 82962; 83036; 83605; 85025; 87086; 87502; 87811; 93005; 96374; 99285; G0378